=== PATIENT | male | born 2000 | race African-American/Black ===

== ENCOUNTER 2022-05-11 09:28 | Emergency (ER) | payer BC, MEDICAID, SELFPAY ==
--- NOTE | ~2022-05-11 | XR_ITS ---
EXAMINATION: XR knee LT min 4V DATE: 05/11/2022 10:11 INDICATION: Left knee pain. TECHNIQUE: 4 views of left knee were obtained. COMPARISON: None. FINDINGS: Bone alignment is normal. No fracture. There is mild tricompartmental osteoarthritis charac terized by tiny marginal osteophytes. No knee joint effusion. There is mild infrapatellar soft tissue swelling. IMPRESSION: 1. Mild left knee osteoarthritis. Reviewed, dictated and finalized at location B.
[2022-05-11 09:35] VITALS: BP 152/96; PULSE 85; RESP 18; TEMP 36.7; O2SAT 96
--- NOTE | 2022-05-11 09:45 | ED.LOWEXIN ---
HPI - Extremity Injury (Lower) General Chief Complaint: Extremity Injury, Lower Stated Complaint: knee injury Time Seen by Provider: 05/11/22 09:35 Source: patient Mode of arrival: ambulatory Limitations: no limitations History of Present Illness HPI Narrative: 21-year-old male presents today with complaints of left knee pain that started yesterday. Patient states that he was playing basketball when he came down wrong and fell onto his left knee. Patient has noted swelling. Patient able to ambulate with full weightbearing but with pain. Patient denies any numbness or tingling. Full range of motion noted. Related Data Allergies Allergy/AdvReac Type Severity Reaction Status Date / Time No Known Allergies Allergy Verified 05/11/22 09:37 Review of Systems Review of Systems: CONSTITUTIONAL: Denies fever, chills, or sweats. EYES: Denies visual changes, redness, or discharge. ENT: Denies rhinorrhea, congestion, sore throat, or otalgia. CARDIOVASCULAR: Denies chest pain, palpitations, or edema. RESPIRATORY: Denies cough or dyspnea. GASTROINTESTINAL: Denies abdominal pain, nausea, vomiting, or diarrhea. GENITOURINARY: Denies dysuria or hematuria. SKIN: Denies rash or itching. MUSCULOSKELETAL: Left knee pain with swelling. Denies back pain or myalgia. NEUROLOGIC: Denies headache, numbness, dizziness, or weakness. PSYCHIATRIC: Denies anxiety or depression. Exam Narrative: GENERAL: Well-appearing, well-nourished, and in no acute distress. HEAD: Normocephalic, atraumatic. EYES: PERRLA and EOMI. ENT: Nares clear, no rhinorrhea or epistaxis. Mucous membranes moist. Oropharynx without tonsillar hypertrophy exudate or other lesions. Bilateral TMs pearly vasquez nonbulging NECK: Supple. No adenopathy or masses. No carotid bruits or JVD CHEST: Clear to auscultation. No respiratory distress. No wheezes rales or rhonchi HEART: Regular rate and rhythm. No murmur heard. Normal peripheral pulses. ABDOMEN: Soft, nontender, nondistended, normal active bowel sounds. EXTREMITIES: Infrapatellar knee swelling. Normal range of motion. No laxity noted. SKIN: Warm, dry, no rash. NEURO: No focal deficits. Alert and oriented x3. PSYCH: Normal mood and affect. Course Vital Signs Vital signs: Vital Signs Temperature 36.7 C 05/11/22 09:35 Pulse Rate 85 05/11/22 09:35 Respiratory Rate 18 05/11/22 09:35 Blood Pressure 152/96 H 05/11/22 09:35 Pulse Oximetry 96 05/11/22 09:35 Oxygen Delivery Room Air 05/11/22 09:35 Temperature 36.7 C 05/11/22 09:35 Pulse Rate 85 05/11/22 09:35 Respiratory Rate 18 05/11/22 09:35 Blood Pressure 152/96 H 05/11/22 09:35 Pulse Oximetry 96 05/11/22 09:35 Oxygen Delivery Room Air 05/11/22 09:35 MDM - Extremity Injury (Lower) Differential Diagnosis Differential diagnosis: Likely acute internal derangement of knee and other (knee sprain) Imaging Data Attestation: I personally reviewed and interpreted this imaging study as follows: Radiologist's impression: Impressions Knee X-Ray 05/11/22 10:12 IMPRESSION: 1. Mild left knee osteoarthritis. Discharge Plan Discharge Clinical Impression: Knee sprain Qualifiers: Encounter type: initial encounter Involved ligament of knee: unspecified ligament Laterality: left Qualified Code(s): S83.92XA - Sprain of unspecified site of left knee, initial encounter Osteoarthritis of left knee Qualifiers: Osteoarthritis type: unspecified Qualified Code(s): M17.12 - Unilateral primary osteoarthritis, left knee Patient Disposition: Home, Self-Care Condition: Stable Instructions: Antibiotic Form, Knee Sprain (DC) Additional Instructions: Use selin wrap for comfort. May ice area of pain for 20 minutes at a time couple times a day to help with swelling and pain. Ibuprofen 600mg as needed for pain. Follow up with primary or ortho if pain persists. Please monitor your BP and follow up with primary for it was elevated tod
[2022-05-11] MEDS: IBUPROFEN 600 MG TABLET PO (09:50)
--- NOTE | 2022-05-11 10:08 | PC.NURSE ---
Pt to XRAY at this time.
[2022-05-11 10:38] VITALS: RESP 16
== END 2022-05-11 10:38 | disposition home or self-care (01) ==
PROVIDERS: Emergency Provider Nurse Practitioner Family
DX: S83.92XA Sprain of unspecified site of left knee, initial encounter (principal); M17.12 Unilateral primary osteoarthritis, left knee; W18.39XA Other fall on same level, initial encounter; Y93.67 Activity, basketball
CPT/HCPCS: 73564; 99283; A9270